=== PATIENT | male | born 1955 | race Caucasian/White ===

== ENCOUNTER → 2024-08-30 11:00 | Outpatient (REF) | payer MEDICARE, SELFPAY ==
[2024-08-31 06:59] LABS: PSA, Ultrasensitive <0.01 ng/mL (0.00-4.00)
== END ==
LOC: REG 11:00
PROVIDERS: ATTENDING PHYSICIAN Surgery; FAMILY PHYSICIAN Family Medicine
DX: C61 Malignant neoplasm of prostate (principal)
CPT/HCPCS: 36415; 84153